=== PATIENT | male | born 1975 | race Caucasian/White ===

== ENCOUNTER 2021-07-23 12:23 | Emergency (ER) | payer OTHER, SELFPAY ==
--- NOTE | ~2021-07-23 | XR_ITS ---
EXAMINATION: XR tibia fibula LT 2V DATE: 07/23/2021 13:50 INDICATION: Left lower leg injury. TECHNIQUE: 2 views of left tibia and fibula on 4 radiographs were obtained. COMPARISON: None. FINDINGS: Bone alignment is normal. No acute fracture. There are screws in medial malleolus. There is plate and screw fixation of distal fibular diaphysis. There is mild knee and midfoot osteoarthritis. There is a small knee joint effusion. IMPRESSION: 1. No acute fracture. 2. Mild polyarticular osteoarthritis. 3. Small knee joint effusion. Reviewed, dictated and finalized at location A. [facility]
[2021-07-23 13:03] VITALS: BP 141/83; PULSE 75; RESP 16; TEMP 37.1; O2SAT 98
--- NOTE | 2021-07-23 13:36 | ED_ITS ---
HPI - Extremity Injury (Lower) General Chief Complaint: Extremity Injury, Lower Stated Complaint: L LEG INJURY AT WORK Time Seen by Provider: 07/23/21 13:09 History of Present Illness HPI Narrative: Patient is a 46-year-old male who presents ER with left fish pain. He had a trip and fall at work where he struck his left fish on a wood pallet. He has a vertical abrasion of the fish. He reports he has not bared weight as he is nervous and alert. No numbness or tingling. Denies fevers or chills or sweats. Reports tetanus shot is up-to-date. He did not strike his head or injure any other extremities. Related Data Allergies Allergy/AdvReac Type Severity Reaction Status Date / Time No Known Allergies Allergy Verified 07/23/21 14:10 Review of Systems Musculoskeletal: Musculoskeletal: Denies arthralgias, Denies joint swelling and Denies muscle cramps Integumentary/Breasts: Skin/Breast: Denies rash Comments: Left fish abras ion Neurologic: Denies syncope, Denies headache(s), Denies focal weakness and Denies numbness PMFSH Past Medical History Medical History (Updated 07/23/21 @ 14:26 by Julito De La Rosa MD) Healthy adult male Surgical History Surgical History (Updated 07/23/21 @ 13:40 by Julito De La Rosa MD) No pertinent past surgical history Exam Narrative: GENERAL: Well-appearing, well-nourished, and in no acute distress. HEAD: Normocephalic, atraumatic. EXTREMITIES: Normal range of motion. No edema. No tenderness of the knee on the left. SKIN: Warm, dry, 4cm abrasion left shit with underlying swelling. NEURO: No focal deficits. Alert and oriented x3. PSYCH: Normal mood and affect. Course Course Emergency Course: Informed of results. Discharge home. Vital Signs Vital signs: Vital Signs Temperature 98.7 F 07/23/21 13:03 Pulse Rate 75 07/23/21 13:03 Respiratory Rate 16 07/23/21 13:03 Blood Pressure 141/83 H 07/23/21 13:03 Pulse Oximetry 98 07/23/21 13:03 Temperature 98.7 F 07/23/21 13:03 Pulse Rate 75 07/23/21 13:03 Respiratory Rate 16 07/23/21 13:03 Blood Pressure 141/83 H 07/23/21 13:03 Pulse Oximetry 98 07/23/21 13:03 MDM - Extremity Injury (Lower) Imaging Data Radiologist's impression: ITS Impressions Tibia/Fibula X-Ray 07/23/21 13:56 IMPRESSION: 1. No acute fracture. 2. Mild polyarticular osteoarthritis. 3. Small knee joint effusion. Discharge Plan Discharge Clinical Impression: Abrasion, Contusion Patient Disposition: Home, Self-Care Condition: Stable Instructions: Contusion in Adults (ED), Abrasion (ED) Additional Instructions: Return the ER if you suffer new injury, you have chest pain or shortness of breath, you develop redness and swelling of your leg, you have additional concerns. Prescriptions: New ibuprofen 600 mg tablet 600 mg PO TID Qty: 14 RF: 0 Follow-up/Referrals: Vin Muro MD [Physician] - 1 Week PHYSICIAN,SENIOR ENVIRONMENTAL TECHNICIAN [Primary Care Provider] -
[2021-07-23] MEDS: ACETAMINOPHEN 500 MG TABLET 1000 MG PO (14:11)
== END 2021-07-23 14:41 | disposition home or self-care (01) ==
PROVIDERS: Emergency Provider Emergency Medicine
DX: S80.812A Abrasion, left lower leg, initial encounter (principal); S80.12XA Contusion of left lower leg, initial encounter; W01.198A Fall on same level from slipping, tripping and stumbling with subsequent striking against other object, initial encounter
CPT/HCPCS: 73590; 99283; A9270